=== PATIENT | female | born 1955 | race American Indian/Alaskan Native ===

== ENCOUNTER 2017-05-07 19:48 | Emergency (ER) | payer MEDICAID ==
[~2017-05-07] VITALS: Ht 152.4 cm; Wt 86.2 kg
[2017-05-07 19:50] VITALS: BP_SYST 141
[2017-05-07] MEDS ORDERED: IPRATROPIUM/ALBUTEROL SULFATE 3 ML AMPUL.NEB INH ONE (20:30)
[2017-05-07 20:52] LABS: BASOPHILS # (AUTO) 0.1 K/uL (0.0-0.2); BASOPHILS % (AUTO) 1.1 % (0.0-2.0); EOSINOPHILS # (AUTO) 0.3 K/uL (0.0-0.4); EOSINOPHILS % (AUTO) 4.6 % (0.0-4.0); HEMATOCRIT 43.5 % (36-48); HEMOGLOBIN 14.2 g/dL (12.0-16.0); LYMPHOCYTES # (AUTO) 1.5 K/uL (1.0-5.5); LYMPHOCYTES % (AUTO) 22.1 % (20.5-51.5); MEAN CORPUSCULAR HEMOGLOBIN 28 pg (27-31); MEAN CORPUSCULAR HGB CONC 33 % (32-36); MEAN CORPUSCULAR VOLUME 86 fL (79.0-98.0); MONOCYTES % (AUTO) 14.2 % (1.7-9.3); NEUTROPHILS # (AUTO) 3.9 K/uL (1.8-7.7); PLATELET COUNT (AUTO) 290 K/uL (130-430); RED BLOOD CELL COUNT(AUTO) 5.08 MIL/uL (4.2-6.2); RED CELL DISTRIBUTION WIDTH 12.4 % (9.0-15.0); WHITE BLOOD COUNT (AUTO) 6.8 K/uL (4.8-10.8)
[2017-05-07 21:07] LABS: ANION GAP 9 (5-15); CALCIUM 9.8 mg/dL (8.4-11.0); CHLORIDE 102 mmol/L (98-107); CREATININE 0.75 mg/dL (0.55-1.30); GLUCOSE 99 mg/dL (70-99); POTASSIUM 4.1 mmol/L (3.5-5.1); SODIUM SERUM 138 mmol/L (136-145); UREA NITROGEN, BLOOD 16 mg/dL (8-21)
[2017-05-07 21:15] LABS: ALANINE AMINOTRANSFERASE 29 U/L (12-78); ASPARTATE AMINOTRANSFERASE 22 U/L (10-37); GFR AFRICAN AMERICAN 101 mL/min (>90); LIPASE 240 U/L (73-393); TOTAL BILIRUBIN 0.4 mg/dL (0.0-1.0)
[2017-05-07 23:34] VITALS: BP_SYST 141
== END 2017-05-07 23:34 | disposition home or self-care (01) ==
LOC: SED 19:48
DX: J40 Bronchitis, not specified as acute or chronic (principal)
CPT/HCPCS: 36415; 71045; 80053; 83690-TC; 83880; 84484; 85025; 86710; 93005; 94640; 99285

== ENCOUNTER 2019-02-01 22:43 | Emergency (ER) | payer MEDICAID ==
[~2019-02-01] VITALS: Ht 152.4 cm; Wt 86.2 kg
[2019-02-01 22:47] VITALS: BP_SYST 161
--- NOTE | 2019-02-01 22:55 | NUR ---
Pt to ER hallway 1, to cafeteria monitor. Pt c/o SOB worse since yesterday. Non-productive and moist cough noted, expiratory wheezing to BBS, tachypneic. Pt with hx Asthma. Used Albuterol Inh x 3 puffs, not effective.
--- NOTE | 2019-02-01 22:58 | NUR ---
Dr. Washburn and RT notified.
--- NOTE | 2019-02-01 23:01 | NUR ---
Dr. Washburn at bedside.
--- NOTE | 2019-02-01 23:10 | NUR ---
RT at bedside.
[2019-02-01] MEDS ORDERED: ONDANSETRON HCL 4 MG/2 ML VIAL IVP ONE (23:15)
[2019-02-01] MEDS ORDERED: ALBUTEROL SULFATE 0.083% 2.5 MG/3 ML VIAL.NEB INH ONE (23:15)
--- NOTE | 2019-02-01 23:30 | NUR ---
Pt verbalizes improvement in respirations. No wheezing noted.
--- NOTE | 2019-02-01 23:40 | NUR ---
Lab at bedside.
--- NOTE | 2019-02-02 00:10 | NUR ---
Pt c/o Chest pain with deep inspirations. Dr. Washburn notified.
[2019-02-02] MEDS ORDERED: MORPHINE 2 MG/ML INJ. SYRINGE IVP ONE (00:15)
[2019-02-02 00:19] LABS: BASOPHILS # (AUTO) 0.1 K/uL (0.0-0.2); BASOPHILS % (AUTO) 0.6 % (0.0-2.0); EOSINOPHILS # (AUTO) 0.3 K/uL (0.0-0.4); EOSINOPHILS % (AUTO) 3.4 % (0.0-4.0); HEMATOCRIT 42.3 % (36-48); HEMOGLOBIN 13.8 g/dL (12.0-16.0); LYMPHOCYTES # (AUTO) 2.8 K/uL (1.0-5.5); LYMPHOCYTES % (AUTO) 33.2 % (20.5-51.5); MEAN CORPUSCULAR HEMOGLOBIN 29 pg (27-31); MEAN CORPUSCULAR HGB CONC 33 % (32-36); MEAN CORPUSCULAR VOLUME 89 fL (79.0-98.0); MONOCYTES # (AUTO) 0.8 K/uL (0.0-1.0); MONOCYTES % (AUTO) 9.3 % (1.7-9.3); NEUTROPHILS # (AUTO) 4.5 K/uL (1.8-7.7); NEUTROPHILS % (AUTO) 53.5 % (40.0-70.0); PLATELET COUNT (AUTO) 278 K/uL (130-430); RED BLOOD CELL COUNT(AUTO) 4.75 MIL/uL (4.2-6.2); RED CELL DISTRIBUTION WIDTH 13.2 % (9.0-15.0); WHITE BLOOD COUNT (AUTO) 8.3 K/uL (4.8-10.8)
[2019-02-02 00:30] LABS: CALCIUM 9.5 mg/dL (8.4-11.0); CREATININE 0.96 mg/dL (0.55-1.30)
--- NOTE | 2019-02-02 00:39 | NUR ---
Pt verbalizes improvement in C/P and refuses Morphine and Zofran. Pt requests Ibuprofen instead. Dr. Washburn notified.
--- NOTE | 2019-02-02 00:40 | NUR ---
Informed Dr. Washburn that WBC WNL to verify if Levaquin IV is still to be given. Levaquin discontinued.
[2019-02-02 00:43] LABS: ALBUMIN 3.8 g/dL (3.4-4.8); TOTAL BILIRUBIN 0.3 mg/dL (0.0-1.0)
[2019-02-02] MEDS ORDERED: IBUPROFEN 600 MG TABLET PO ONE (00:45)
--- NOTE | 2019-02-02 00:56 | NUR ---
Specimen for Influenza collected from Left nare, sent to lab.
[2019-02-02] MEDS ORDERED: IBUPROFEN 600 MG TABLET ONE ×2 (00:58→01:07)
--- NOTE | 2019-02-02 02:17 | NUR ---
Patient given written and verbal discharge instructions and verbalizes understanding. ER MD discussed with patient the results and treatment provided. Patient in stable condition. ID arm band removed. Rx of z-enrique and Proair HFA given. Patient educated on pain management and to follow up with PMD. Pain Scale 0/10. Opportunity for questions provided and answered. Medication side effect fact sheet provided.
[2019-02-02 02:21] VITALS: BP_SYST 139
== END 2019-02-02 02:17 | disposition home or self-care (01) ==
LOC: SED 22:43
DX: J45.909 Unspecified asthma, uncomplicated (principal); R06.02 Shortness of breath; R07.89 Other chest pain; R05 Cough
CPT/HCPCS: 36415; 71045; 80053; 82550-TC; 83605; 83880; 84484; 85025; 85379; 86710; 87040-TC; 93005; 94640; 99284

== ENCOUNTER 2023-12-24 18:00 | Emergency (ER) | payer MEDICAID, OTHER ==
[~2023-12-24] VITALS: Ht 152.4 cm; Wt 61.2 kg
[2023-12-24 18:05] VITALS: BP_SYST 129; PULSE 80; RESP 18; TEMP 97.6; O2SAT 99
[2023-12-24 19:11] LABS: BASOPHILS # (AUTO) 0.1 K/uL (0.0-0.2); BASOPHILS % (AUTO) 0.6 % (0.0-2.0); EOSINOPHILS % (AUTO) 0.4 % (0.0-4.0); HEMATOCRIT 27.3 % (36-48); HEMOGLOBIN 8.6 g/dL (12.0-16.0); LYMPHOCYTES # (AUTO) 1.4 K/uL (1.0-5.5); LYMPHOCYTES % (AUTO) 15.1 % (20.5-51.5); MEAN CORPUSCULAR HEMOGLOBIN 23 pg (27-31); MEAN CORPUSCULAR HGB CONC 32 % (32-36); MEAN CORPUSCULAR VOLUME 74 fL (79.0-98.0); MONOCYTES # (AUTO) 0.4 K/uL (0.0-1.0); MONOCYTES % (AUTO) 4.9 % (1.7-9.3); NEUTROPHILS # (AUTO) 7.2 K/uL (1.8-7.7); PLATELET COUNT (AUTO) 510 K/uL (130-430); RED BLOOD CELL COUNT(AUTO) 3.72 MIL/uL (4.2-6.2); RED CELL DISTRIBUTION WIDTH 18.9 % (9.0-15.0); WHITE BLOOD COUNT (AUTO) 9.1 K/uL (4.8-10.8)
[2023-12-24] MEDS: NACL 0.9% 1,000 ML IV ONE ×2 (19:11→20:45)
[2023-12-24] MEDS: METOCLOPRAMIDE HCL 10 MG/2 ML VIAL IVP ONE (19:12)
[2023-12-24] MEDS: DIPHENHYDRAMINE INJ 50 MG/ML VIAL IVP ONE (19:12)
[2023-12-24] MEDS: ONDANSETRON HCL 4 MG/2 ML VIAL IVP ONE (19:12)
[2023-12-24] MEDS: KETOROLAC TROMETHAMINE 30 MG VIAL IVP ONE (19:12)
[2023-12-24 19:31] LABS: INR 1.1 (0.8-1.2); PROTHROMBIN TIME 11.4 SECS (9.5-12.5)
[2023-12-24 19:54] LABS: ALANINE AMINOTRANSFERASE 13 U/L (12-78); ALBUMIN 2.6 g/dL (3.4-4.8); ANION GAP 9 (5-15); ASPARTATE AMINOTRANSFERASE 33 U/L (10-37); BILIRUBIN,DIRECT 0.1 mg/dL (0.0-0.3); CALCIUM 8.6 mg/dL (8.4-11.0); CARBON DIOXIDE 27 mmol/L (23-29); CHLORIDE 99 mmol/L (98-107); CREATININE 0.75 mg/dL (0.55-1.30); GFR AFRICAN AMERICAN 99 mL/min (>90); GLUCOSE 110 mg/dL (74-106); POTASSIUM 3.8 mmol/L (3.5-5.1); SODIUM SERUM 135 mmol/L (136-145); TOTAL BILIRUBIN 0.3 mg/dL (0.0-1.0); TOTAL PROTEIN, SERUM 8.6 g/dL (6.4-8.3); UREA NITROGEN, BLOOD 14 mg/dL (8-21)
[2023-12-24 19:59] LABS: GFR NON AFRICAN-AMERICAN 82 mL/min (>90)
[2023-12-24 20:30] LABS: BILIRUBIN,URINE NEGATIVE (NEGATIVE); BLOOD, URINE 2+ (NEGATIVE); CLARITY/URINE CLEAR (CLEAR); COLOR,URINE YELLOW (YELLOW); GLUCOSE,URINE NEGATIVE (NEGATIVE); KETONES,URINE 1+ (NEGATIVE); LEUKOCYTE ESTERASE ,URINE 2+ (NEGATIVE); NITRITE, URINE POSITIVE (NEGATIVE); PROTEIN URINE 1+ (NEGATIVE); UROBILINOGEN,URINE 0.2 (0.2-1.0)
[2023-12-24] MEDS: MORPHINE 4 MG INJ. 4 MG/ML VIAL IVP ONE (20:44)
[2023-12-24 20:51] LABS: BACTERIA,URINE MANY /HPF (None Seen); RBC,URINE >100 /HPF (0-3); WBC,URINE 80-100 /HPF (0-3)
[2023-12-24] MEDS ORDERED: ONDA-8 TL (22:03)
[2023-12-24] MEDS ORDERED: SULF1TAB48 PO (22:03)
[2023-12-24] MEDS ORDERED: OMEP40CA20 PO (22:03)
[2023-12-24] MEDS ORDERED: cefTRIAXone 1 GM VIAL ONE (22:21)
[2023-12-24] MEDS: cefTRIAXone 1 GM in D5W 50 ML IV ONE (22:24)
[2023-12-24] MEDS ORDERED: HYDR-3927 PO (22:43)
[2023-12-24 23:10] VITALS: BP_SYST 107; PULSE 62; RESP 18; TEMP 97.1; O2SAT 100
== END 2023-12-24 23:10 | disposition home or self-care (01) ==
LOC: SED 18:00
DX: N39.0 Urinary tract infection, site not specified (principal); K21.9 Gastro-esophageal reflux disease without esophagitis; R11.10 Vomiting, unspecified; R10.13 Epigastric pain; I10 Essential (primary) hypertension; J45.909 Unspecified asthma, uncomplicated; Z85.43 Personal history of malignant neoplasm of ovary; Z90.710 Acquired absence of both cervix and uterus
CPT/HCPCS: 99285; 74176; 96375; 96365; 96361; 71045; 80076; 80048; 81001; 83735; 85025; 85610; 85730; 87040; 87086; 87186; 84484; 36415; 93005; 83605; J0696; J1200; J1885; J2765; J2405; J2270; J7030; 81000; 81015